=== PATIENT | male | born 1955 | race Caucasian/White ===

== ENCOUNTER 2018-07-15 12:44 | Emergency (ER) | payer OTHER ==
--- NOTE | 2018-07-15 13:06 | ER Document Report ---
ED Neuro Symptoms/Deficit <MECHELLE PRIETO - Last Filed: 07/15/18 13:39> - General Mode of Arrival: Ambulatory Information source: Patient Notes: Patient is a 63 year old male that presents to the emergency department today with complaints of "I think I am having a stroke". Patient states he was sitting on the edge of his bed watching tv at 1110 when his symptoms began. Patient describes these symptoms as left sided numbness/tingling/weakness from "the tips of his left toes to the tips of his left fingers". Patient stats he felt dizzy, near syncope, had blurry vision, speech impairments, and diaphoresis. Patient states that he knew what he wanted to say but there was a "delay in being able to get it out". Patient states he did not attempt to get up off the bed because he thinks he would have fallen. Patient called his neighbor who came over and then called EMS. Patient denies falling or any trauma. Patient states he nevers goes to the doctor and has no known medical problems or medications. Patient is not on any blood thinning medications. <JOSSY SHIELDS - Last Filed: 07/15/18 13:52> - General Stated Complaint: LEFT SIDE PAIN Time Seen by Provider: 07/15/18 12:56 Past Medical History - General Information source: Patient - Social History Smoking Status: Current Every Day Smoker Cigarette use (# per day): Yes Frequency of alcohol use: Heavy - states his drinking habits vary from several beers a day to several days without beer Lives with: Family Family History: Reviewed & Not Pertinent Past Surgical History: Reports: Other - Left shoulder ORIF <JOSSY SHIELDS - Last Filed: 07/15/18 13:52> Review of Systems - Review of Systems Constitutional: No symptoms reported EENT: See HPI, Blurred vision Cardiovascular: See HPI, Dizziness Respiratory: No symptoms reported Gastrointestinal: No symptoms reported Genitourinary: No symptoms reported Male Genitourinary: No symptoms reported Musculoskeletal: No symptoms reported Skin: No symptoms reported Hematologic/Lymphatic: No symptoms reported Neurological/Psychological: See HPI, Weakness - left sided, Speech impairment, Numbness - left sided -: Yes All other systems reviewed and negative <JOSSY SHIELDS - Last Filed: 07/15/18 13:52> Physical Exam - Vital signs Vitals: Temp 97 F L 07/15/18 13:10 <CONNERMECHELLE - Last Filed: 07/15/18 13:39> - Notes Notes: Physical Exam: General: Alert, appears well. Leg shivering/muscle twitching over distal medial thighs which he states he thinks is because he is quite cold in this air conditioned room as he does not have AC at home. HEENT: Normocephalic. Atraumatic. Large hollis. No cartoid bruits. PERRL. Extraocular movements intact. Oropharynx clear. Neck: Supple. Non-tender. Respiratory: No respiratory distress. Coarse breath sounds bilaterally consistent with extensive smoking history. Cardiovascular: Regular rate and rhythm. Abdominal: Normal Inspection. Non-tender. No distension. Normal Bowel Sounds. Back: Non-tender. No deformity or step off. Extremities: Moves all four extremities. Upper extremities: 3-4/5 strength in RUE. No edema. Lower extremities: 3-4/5 strength in LLE. No edema. Neurological: Normal cognition. AAOx4. Slightly delayed speech. Psychological: Normal affect. Normal Mood. Skin: Warm. Dry. Normal color. <JOSSY SHIELDS - Last Filed: 07/15/18 13:52> Course - Vital Signs Vital signs: Temp Pulse Resp BP Pulse Ox 97 F L 07/15/18 13:10 - Laboratory Result Diagrams: 07/15/18 12:07 07/15/18 12:07 Laboratory results interpreted by me: 07/15/18 07/15/18 07/15/18 12:07 12:07 13:11 WBC 10.9 H Glucose 133 H POC Glucose 115 H Direct Bilirubin 0.5 H AST 16 L ALT 16 L - Diagnostic Test Radiology reviewed: Reports reviewed - Chest x-ray is unremarkable. CT scan of the brain shows an acute right pontine hemorrhage. - EKG Interpretation by [place] EKG shows normal: Sinus rhythm, [place], Intervals, QRS Complexes. abnormal: ST-T Waves - Borderline anterolateral T abnormalities Rate: Normal - 59 Rhythm: NSR When compared to previous EKG there are: Previous EKG unavailable - Consults Dr. Irizarry Time consulted: 13:35 Consulted provider: other - Will accept at [facility]. <MECHELLE PRIETO - Last Filed: 07/15/18 13:39> - Laboratory Result Diagrams: 07/15/18 12:07 07/15/18 12:07 <JOSSY SHIELDS - Last Filed: 07/15/18 13:52> ED [employer]/Exc Criteria ED NIH Stroke Scale Discharge <MECHELLE PRIETO - Last Filed: 07/15/18 13:39> <JOSSY SHIELDS - Last Filed: 07/15/18 13:52> - Discharge Clinical Impression: Pontine hemorrhage High blood pressure Qualifiers: Hypertension type: unspecified Qualified Code(s): I10 - Essential (primary) hypertension Scribe Documentation - Scribe Written by Scribe:: Imani Romero, 07/15/2018 1350 acting as scribe for :: Conner <JOSSY SHIELDS - Last Filed: 07/15/18 13:52>
[2018-07-15 13:11] LABS: ABSOLUTE BASOPHILS # (AUTO) 0.1 10^3/uL (0.0-0.2); ABSOLUTE EOSINOPHILS # (AUTO) 0.3 10^3/uL (0.0-0.6); ABSOLUTE LYMPHOCYTES (AUTO) 4.6 10^3/uL (0.5-4.7); ABSOLUTE MONOCYTES (AUTO) 0.8 10^3/uL (0.1-1.4); ABSOLUTE NEUT (AUTO) 5.2 10^3/uL (1.7-8.2); BASOPHILS % (AUTO) 0.8 % (0-2); EOSINOPHILS % (AUTO) 2.4 % (0-6); HEMATOCRIT 44.1 % (37.9-51.0); HEMOGLOBIN 15.2 g/dL (13.5-17.0); MEAN CORPUSCULAR HEMOGLOBIN 31.1 pg (27.0-33.4); MEAN CORPUSCULAR HGB CONC 34.5 g/dL (32.0-36.0); MEAN CORPUSCULAR VOLUME 90 fl (80-97); MONOCYTES % (AUTO) 7.1 % (3-13); PLATELET COUNT 413 10^3/uL (150-450); RED BLOOD COUNT 4.89 10^6/uL (4.35-5.55); RED CELL DISTRIBUTION WIDTH 12.8 % (11.5-14.0); SEGMENTED NEUTROPHILS % (AUTO) 47.7 % (42-78); TOTAL CELLS COUNTED % (AUTO) 100 %; WHITE BLOOD COUNT 10.9 10^3/uL (4.0-10.5)
--- NOTE | 2018-07-15 13:18 | RADIOLOGY REPORT (SQ) ---
EXAM DESCRIPTION: CT HEAD WITHOUT COMPLETED DATE/TIME: 07/15/2018 1:08 pm REASON FOR STUDY: Left-sided weakness with impaired speech. COMPARISON: None. TECHNIQUE: Axial images acquired through the brain without intravenous contrast. Images reviewed wi th bone, brain and subdural windows. Additional sagittal and coronal reconstructions were generated. Images stored on PACS. All CT scanners at this facility use dose modulation, iterative reconstruction, and/or weight based d osing when appropriate to reduce radiation dose to as low as reasonably achievable (ALARA). [facility]: Dose Right [facility]: CareDose [facility]: Dose Right [facility]: Teradose 4D [facility]: [employer] RADIATION DOSE: CT Rad equipment meets quality standard of care and radiation dose reduction techniq ues were employed. CTDIvol: 53.2 mGy. DLP: 1044 mGy-cm. mGy. LIMITATIONS: None. FINDINGS: VENTRICLES: Normal size and contour. CEREBRUM: No masses. No hemorrhage. No midline shift. No evidence for acute infarction. Normal gra y/white matter differentiation. No areas of low density in the white matter. CEREBELLUM: No masses. No hemorrhage. No alteration of density. No evidence for acute infarction. EXTRAAXIAL SPACES: No fluid collections. No masses. ORBITS AND GLOBE: No intra- or extraconal masses. Normal contour of globe without masses. CALVARIUM: No fracture. PARANASAL SINUSES: No fluid or mucosal thickening. SOFT TISSUES: No mass or hematoma. OTHER: High density material in the right side of the zohreh consistent with hemorrhage, measuring 5 x 10 mm. 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 EVIDENCE OF ACUTE STROKE: YES. HEMORRHAGIC STROKE RIGHT SIDE OF THE ZOHREH. RIGHT VERTEBROBASILAR. COMMENT: Pertinent findings on the imaging study reported as a CRITICAL RESULT to MECHELLE PRIETO MD at13:12 on 07/15/2018. Category of Critical Result: Acute pontine hemorrhage. Quality ID # 436: Final reports with documentation of one or more dose reduction techniques (e.g., Au tomated exposure control, adjustment of the mA and/or kV according to patient size, use of iterative reconstruction technique) TECHNICAL DOCUMENTATION: JOB ID: [id number] [employer]- All Rights Reserved Reading location - IP/workstation name: [email or web address]
[2018-07-15 13:20] LABS: INTERNATIONAL RATION (INR) 0.91; PROTHROMBIN TIME 12.7 SEC (11.4-15.4)
[2018-07-15] MEDS ORDERED: LABETALOL HCL INJ 20 MG/4 ML DISP.SYRIN IV ONE (13:20)
[2018-07-15 13:30] LABS: ALANINE AMINOTRANSFERASE 16 U/L (21-72); ALBUMIN 4.4 g/dL (3.5-5.0); ALKALINE PHOSPHATASE 94 U/L (38-126); ANION GAP 9 (5-19); ASPARTATE AMINO TRANSFERASE 16 U/L (17-59); BILIRUBIN,DIRECT 0.5 mg/dL (0.0-0.4); BILIRUBIN,TOTAL 0.9 mg/dL (0.2-1.3); BLOOD UREA NITROGEN 9 mg/dL (7-20); CALCIUM 9.5 mg/dL (8.4-10.2); CARBON DIOXIDE 29 mmol/L (22-30); CHLORIDE 103 mmol/L (98-107); CREATINE KINASE 57 U/L (55-170); GLUCOSE 133 mg/dL (75-110); POTASSIUM 4.3 mmol/L (3.6-5.0); SODIUM 140.8 mmol/L (137-145); TOTAL PROTEIN 8.1 g/dL (6.3-8.2)
[2018-07-15] MEDS ORDERED: NICARDIPINE HCL RTU, ISO-OS 20 MG/200 ML RTUINJ IV PRN (13:33)
--- NOTE | 2018-07-15 13:48 | RADIOLOGY REPORT (SQ) ---
EXAM DESCRIPTION: CHEST SINGLE VIEW COMPLETED DATE/TIME: 07/15/2018 1:29 pm REASON FOR STUDY: COPD, left-sided weakness COMPARISON: None. EXAM PARAMETERS: NUMBER OF VIEWS: One view. TECHNIQUE: Single frontal radiographic view of the chest acquired. RADIATION DOSE: NA LIMITATIONS: None. FINDINGS: LUNGS AND PLEURA: No opacities, masses or pneumothorax. No pleural effusion. MEDIASTINUM AND HILAR STRUCTURES: No masses. Contour normal. HEART AND VASCULAR STRUCTURES: Heart normal in size. Normal vasculature. BONES: No acute findings. HARDWARE: None in the chest. OTHER: No other significant finding. IMPRESSION: NO ACUTE RADIOGRAPHIC FINDING IN THE CHEST. TECHNICAL DOCUMENTATION: JOB ID: [id number] [employer]- All Rights Reserved Reading location - IP/workstation name: [email or web address]
[2018-07-15 14:50] VITALS: BP 153/88
--- NOTE | 2018-07-15 20:07 | EKG REPORT ---
SEVERITY:- BORDERLINE ECG - SINUS RHYTHM BORDERLINE T ABNORMALITIES, ANT-LAT LEADS : Confirmed by: Bianka Chavarria MD 15-Jul-2018 20:07:09
== END 2018-07-15 14:50 | disposition short-term general hospital (02) ==
LOC: ER 12:44
DX: I61.3 Nontraumatic intracerebral hemorrhage in brain stem (principal); I10 Essential (primary) hypertension; R53.1 Weakness; R20.0 Anesthesia of skin; R20.2 Paresthesia of skin; H53.8 Other visual disturbances; R55 Syncope and collapse; R47.9 Unspecified speech disturbances; F17.210 Nicotine dependence, cigarettes, uncomplicated; R25.3 Fasciculation
CPT/HCPCS: 93005; 99285; 96365; 36415; 82962; 82550; 83735; 85025; 85610; 80053; 84484; 71045; 70450; 93010; J3490

== ENCOUNTER → 2018-11-15 | Outpatient (CLI) | payer MEDICAID ==
--- NOTE | 2018-11-15 13:27 | RADIOLOGY REPORT (SQ) ---
EXAM DESCRIPTION: CT HEAD WITHOUT COMPLETED DATE/TIME: 11/15/2018 1:08 pm REASON FOR STUDY: R53.1 WEAKNESS R53.1 WEAKNESS COMPARISON: 07/15/2018. TECHNIQUE: Axial images acquired through the brain without intravenous contrast. Images reviewed wi th bone, brain and subdural windows. Additional sagittal and coronal reconstructions were generated. Images stored on PACS. All CT scanners at this facility use dose modulation, iterative reconstruction, and/or weight based d osing when appropriate to reduce radiation dose to as low as reasonably achievable (ALARA). [facility]: Dose Right [facility]: CareDose [facility]: Dose Right [facility]: Teradose 4D [facility]: Smart Right [employer] RADIATION DOSE: CT Rad equipment meets quality standard of care and radiation dose reduction techniq ues were employed. CTDIvol: 48.6 mGy. DLP: 954 mGy-cm. mGy. LIMITATIONS: None. FINDINGS: VENTRICLES: Normal size and contour. CEREBRUM: No masses. No hemorrhage. No midline shift. No evidence for acute infarction. Normal gra y/white matter differentiation. No areas of low density in the white matter. CEREBELLUM: No masses. No hemorrhage. No alteration of density. No evidence for acute infarction. EXTRAAXIAL SPACES: No fluid collections. No masses. ORBITS AND GLOBE: No intra- or extraconal masses. Normal contour of globe without masses. CALVARIUM: No fracture. PARANASAL SINUSES: No fluid or mucosal thickening. SOFT TISSUES: No mass or hematoma. OTHER: No other significant finding. IMPRESSION: NORMAL BRAIN CT WITHOUT CONTRAST. EVIDENCE OF ACUTE STROKE: NO. COMMENT: Quality ID # 436: Final reports with documentation of one or more dose reduction techniques (e.g., Automated exposure control, adjustment of the mA and/or kV according to patient size, use of iterative reconstruction technique) TECHNICAL DOCUMENTATION: JOB ID: [id number] [employer]- All Rights Reserved Reading location - IP/workstation name: [email or web address]
== END ==
LOC: RAD 12:48
PROVIDERS: ATTEND Physician Assistant
DX: R53.1 Weakness (principal)
CPT/HCPCS: 70450

== ENCOUNTER 2019-11-09 09:26 | Day surgery (SDC) | payer MEDICARE, MEDICAID ==
[~2019-11-09 09:26] MED LIST: PROPOFOL INJ 200 MG/20 ML VIAL IV ONE
[2019-11-09] MEDS ORDERED: PROPOFOL INJ 200 MG/20 ML VIAL IV ONE (10:36)
[2019-11-09 11:33] VITALS: BP 102/81
--- NOTE | 2019-11-09 17:12 | Operative Report ---
Operative Report DATE OF SURGERY: 11/09/19 Operative Report: Risk, benefits and alternatives of the procedure including the risk of bleeding, perforation requiring surgery have been explained to the patient in detail and informed consent has been obtained. The patient is placed in a left, lateral decubital position. Timeout was called. Propofol medication is administered. Rectal examination is done which did not reveal any masses, tears or fissures. An Olympus videoscope was introduced into the patient's rectum. Scope was then carefully advanced all the way to the cecum. The cecum was identified by the usual anatomical landmarks including the ileocecal valve as well as the appendiceal office. Photodocumentation is obtained. Scope was then sequentially pulled back via the various segments of the colon including the ascending colon, hepatic flexure, transverse colon, splenic flexure, descending colon and finally into the rectosigmoid portions of the colon. Retroflexion maneuvers performed. 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 COMPLICATIONS: None. ESTIMATED BLOOD LOSS: None. INTRAOPERATIVE FINDINGS: As noted above. PROCEDURE: Patient tolerated the procedure well. No immediate postprocedure complications are noted. Patient is discharged in good condition. Discharge date 11/09/2019. Discharge diet: Regular. Discharge activity: Regular. 2 to 3-week follow-up to discuss findings. Likely will need 5-year surveillance colonoscopy. Patient is instructed to call the office or proceed to the emergency room should there be any further problems or questions.
== END 2019-11-09 11:35 | disposition home or self-care (01) ==
LOC: END 09:26
PROVIDERS: ATTEND Internal Medicine Gastroenterology
DX: Q27.33 Arteriovenous malformation of digestive system vessel (principal); K64.8 Other hemorrhoids; K92.1 Melena; E78.5 Hyperlipidemia, unspecified; I10 Essential (primary) hypertension; Z86.73 Personal history of transient ischemic attack (TIA), and cerebral infarction without residual deficits; E78.00 Pure hypercholesterolemia, unspecified; Z79.899 Other long term (current) drug therapy
CPT/HCPCS: 45382; 00811; J2704; 811

== ENCOUNTER 2019-11-21 10:14 | Observation (INO) | payer MEDICARE, MEDICAID ==
--- NOTE | 2019-11-21 11:26 | ER Document Report ---
ED Medical Screen (RME) - General Chief Complaint: Diarrhea Stated Complaint: DIARRHEA,BLOOD IN STOOL Time Seen by Provider: 11/21/19 11:16 Primary Care Provider: SHREYA RENDON PA-C [Primary Care Provider] - Follow up as needed Mode of Arrival: Ambulatory Information source: Patient Notes: 64-year-old male patient presenting to the emergency department concern for bl ood in his stools. Patient reports he had a colonoscopy done on 11/09/[address] Good. Patient reports that he does have a history of hemorrhoids although the bleeding he is experiencing today is too much blood to be from a hemorrhoid. He reports the bleeding as bright red blood coming with each bowel movement. He states he is having loose diarrhea stools. He reports associated abdominal cramping. Denies any fevers. Reports nausea no vomiting. Mild tenderness to palpation along the low abdomen, no guarding no rebound. I have greeted and performed a rapid initial assessment of this patient. A comprehensive ED assessment and evaluation of the patient, analysis of test results and completion of the medical decision making process will be conducted by additional ED providers. I have specifically instructed the patient or family members with the patient to immediately return to any nursing staff should anything change in the patient's condition or with their chief complaint. TRAVEL OUTSIDE OF THE [place] IN LAST 30 DAYS: No - Related Data Allergies/Adverse Reactions: No Known Allergies Allergy (Verified 11/21/19 11:13) Past Medical History - Social History Frequency of alcohol use: Occasional - Past Medical History Cardiac Medical History: Reports: Hx Coronary Artery Disease, Hx Hypertension Denies: Hx Heart Attack Pulmonary Medical History: Denies: Hx Asthma, Hx Bronchitis, Hx COPD, Hx Pneumonia Neurological Medical History: Reports: Hx Cerebrovascular Accident - L side weakness/numbness. Denies: Hx Seizures Renal/ Medical History: Denies: Hx Peritoneal Dialysis Musculoskeltal Medical History: Denies Hx Arthritis Past Surgical History: Reports: Hx Orthopedic Surgery, Other - Left shoulder ORIF - Immunizations Hx Diphtheria, Pertussis, Tetanus Vaccination: No Physical Exam - Vital signs Vitals: Temp Pulse Resp BP Pulse Ox 97.3 F 100 16 133/85 H 99 11/21/19 10:23 11/21/19 10:23 11/21/19 10:23 11/21/19 10:23 11/21/19 10:23 Course - Vital Signs Vital signs: Temp Pulse Resp BP Pulse Ox 97.3 F 100 16 133/85 H 99 11/21/19 10:23 11/21/19 10:23 11/21/19 10:23 11/21/19 10:23 11/21/19 10:23 Doctor's Discharge - Discharge Referrals: SHREYA RENDON PA-C [Primary Care Provider] - Follow up as needed
[2019-11-21 12:20] LABS: ABSOLUTE BASOPHILS # (AUTO) 0.1 10^3/uL (0.0-0.2); ABSOLUTE EOSINOPHILS # (AUTO) 0.2 10^3/uL (0.0-0.6); ABSOLUTE LYMPHOCYTES (AUTO) 3.2 10^3/uL (0.5-4.7); ABSOLUTE MONOCYTES (AUTO) 0.8 10^3/uL (0.1-1.4); BASOPHILS % (AUTO) 0.6 % (0-2); EOSINOPHILS % (AUTO) 1.9 % (0-6); HEMATOCRIT 40.1 % (37.9-51.0); LYMPHOCYTES % (AUTO) 26.3 % (13-45); MEAN CORPUSCULAR HEMOGLOBIN 31.6 pg (27.0-33.4); MEAN CORPUSCULAR HGB CONC 34.8 g/dL (32.0-36.0); MEAN CORPUSCULAR VOLUME 91 fl (80-97); MONOCYTES % (AUTO) 6.2 % (3-13); PLATELET COUNT 357 10^3/uL (150-450); RED BLOOD COUNT 4.42 10^6/uL (4.35-5.55); RED CELL DISTRIBUTION WIDTH 12.6 % (11.5-14.0); TOTAL CELLS COUNTED % (AUTO) 100 %; WHITE BLOOD COUNT 12.3 10^3/uL (4.0-10.5)
[2019-11-21 12:21] LABS: ALBUMIN 4.7 g/dL (3.5-5.0); ALKALINE PHOSPHATASE 85 U/L (38-126); ANION GAP 11 (5-19); ASPARTATE AMINO TRANSFERASE 19 U/L (17-59); BILIRUBIN,DIRECT 0.1 mg/dL (0.0-0.4); BILIRUBIN,TOTAL 1.4 mg/dL (0.2-1.3); BLOOD UREA NITROGEN 19 mg/dL (7-20); CALCIUM 9.7 mg/dL (8.4-10.2); CARBON DIOXIDE 31 mmol/L (22-30); CHLORIDE 100 mmol/L (98-107); GLUCOSE 106 mg/dL (75-110); POTASSIUM 5.3 mmol/L (3.6-5.0); TOTAL PROTEIN 7.8 g/dL (6.3-8.2)
--- NOTE | 2019-11-21 12:24 | RADIOLOGY REPORT (SQ) ---
EXAM DESCRIPTION: KUB/ABDOMEN (SINGLE VIEW) COMPLETED DATE/TIME: 11/21/2019 12:10 pm REASON FOR STUDY: bloody stools COMPARISON: None. NUMBER OF VIEWS: One view. TECHNIQUE: Supine radiographic image of the abdomen acquired. LIMITATIONS: None. FINDINGS: BOWEL GAS PATTERN: Nonspecific gas containing loops of bowel in the mid abdomen. No defin itive pathologic dilation. CALCIFICATIONS: No suspicious calcifications. Scattered pelvic phleboliths. Vascular calcifications . SOFT TISSUES: No gross mass or suggestion of organomegaly. HARDWARE: None in the abdomen. BONES: No acute fracture. No worrisome bone lesions. OTHER: No other significant finding. IMPRESSION: NO RADIOGRAPHIC EVIDENCE FOR ACUTE ABDOMINAL DISEASE. TECHNICAL DOCUMENTATION: JOB ID: [id number] [employer]- All Rights Reserved Reading location - IP/workstation name: [email or web address]
[2019-11-21 12:36] LABS: APPEARANCE,URINE SLIGHTLY-CLOUDY; BILIRUBIN,URINE NEGATIVE (NEGATIVE); COLOR,URINE YELLOW; GLUCOSE, URINE NEGATIVE (NEGATIVE); KETONES,URINE NEGATIVE (NEGATIVE); PROTEIN,URINE NEGATIVE (NEGATIVE); URINE SPECIFIC GRAVITY 1.025; UROBILINOGEN,URINE NEGATIVE mg/dL (<2.0)
--- NOTE | 2019-11-21 13:04 | ER Document Report ---
ED GI/ - General Chief Complaint: Diarrhea Stated Complaint: DIARRHEA,BLOOD IN STOOL Time Seen by Provider: 11/21/19 11:16 Primary Care Provider: SHREYA RENDON PA-C [Primary Care Provider] - Follow up as needed Mode of Arrival: Ambulatory Notes: Patient is a 64-year-old male with a history of hypertension, high cholesterol, acid reflux who presents emergency department with a chief complaint of rectal bleeding. Patient reports around 8 AM this morning he was having generalized lower abdominal cramping. Patient reports that within 1 hour he had about 4-5 bowel movements that appeared to be mixed with bright red blood and bile. Patient reports since then he has noticed some bright red bleeding twice from the rectum without a bowel movement. Patient reports he feels the urge to have a BM but that all that comes out is bright red blood. He states he is seeing small clots. Patient reports he has had rectal bleeding in the past but never this much. Patient reports he did have a colonoscopy on November 09, [address] Good. He reports they did find a spot where they had to ablate. Patient reports other than that he was told that it was normal. Patient reports he has had no issues since then. Patient denies use of blood thinners. Patient reports that since relieving a gas the abdominal cramping has subsided. TRAVEL OUTSIDE OF THE [place] IN LAST 30 DAYS: No - Related Data Allergies/Adverse Reactions: No Known Allergies Allergy (Verified 11/21/19 11:13) Past Medical History - General Information source: Patient - Social History Smoking Status: Current Every Day Smoker Frequency of alcohol use: Occasional Lives with: Family Family History: Reviewed & Not Pertinent Patient has suicidal ideation: No Patient has homicidal ideation: No - Past Medical History Cardiac Medical History: Reports: Hx Coronary Artery Disease, Hx Hypertension Denies: Hx Heart Attack Pulmonary Medical History: Reports: None Denies: Hx Asthma, Hx Bronchitis, Hx COPD, Hx Pneumonia EENT Medical History: Reports: None Neurological Medical History: Reports: Hx Cerebrovascular Accident - L side weakness/numbness. Denies: Hx Seizures Endocrine Medical History: Reports: None Renal/ Medical History: Reports: None. Denies: Hx Peritoneal Dialysis Malignancy Medical History: Reports None GI Medical History: Reports: Hx Gastroesophageal Reflux Disease Musculoskeletal Medical History: Reports None, Denies Hx Arthritis Skin Medical History: Reports None Psychiatric Medical History: Reports: None Traumatic Medical History: Reports: None Infectious Medical History: Reports: None Past Surgical History: Reports: Hx Orthopedic Surgery, Other - Left shoulder ORIF - Immunizations Hx Diphtheria, Pertussis, Tetanus Vaccination: No Review of Systems - Review of Systems Constitutional: No symptoms reported EENT: No symptoms reported Cardiovascular: No symptoms reported Respiratory: No symptoms reported Gastrointestinal: See HPI Genitourinary: No symptoms reported Male Genitourinary: No symptoms reported Musculoskeletal: No symptoms reported Skin: No symptoms reported Hematologic/Lymphatic: No symptoms reported Neurological/Psychological: No symptoms reported Physical Exam - Vital signs Vitals: Temp Pulse Resp BP Pulse Ox 97.3 F 100 16 133/85 H 99 11/21/19 10:23 11/21/19 10:23 11/21/19 10:23 11/21/19 10:11/21/19 10:23 - Notes Notes: GENERAL: Well-appearing, well-nourished and in no acute distress. HEAD: Atraumatic, normocephalic. EYES: Pupils equal round and reactive to light, extraocular movements intact, sclera anicteric, conjunctiva are normal. ENT: Nares patent, oropharynx clear without exudates. Moist mucous membranes. NECK: Normal range of motion, supple without lymphadenopathy or JVD. LUNGS: Breath sounds clear to auscultation bilaterally and equal. No wheezes rales or rhonchi. HEART: Regular rate and rhythm without murmurs, rubs or gallops. ABDOMEN: Soft, nontender (no lower abdominal tenderness noted with palpation), normoactive bowel sounds. No guarding, no rebound. No masses appreciated. BACK: No cervical, thoracic, lumbar midline tenderness. No saddle anesthesia, normal distal neurovascular exam. GENITOURINARY: Deferred. EXTREMITIES: Normal range of motion, no pitting or edema. No clubbing or cyanosis. NEUROLOGICAL: Cranial nerves II through XII grossly intact. Normal speech, normal gait. PSYCH: Normal mood, normal affect. SKIN: Warm, Dry, normal turgor, no rashes or lesions noted. Course - Re-evaluation Re-evalutation: 11/21/19 13:06 Upon initial examination patient is resting comfortably on stretcher no acute di stress. Patient is nontoxic-appearing. Patient denies abdominal pain. A rectal examination was performed with Antwan C., RN assisting. Patient was noted to have 3 areas of bulging coming out of the rectum which appear to be hemorrhoids. Patient tolerated the examination well. Hemoccult was positive. With removal of my gloved finger there was bright red blood noted. 11/21/19 13:09 I did review the operative report from November 09 during the patient's colonoscopy. 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 Patient reports being asymptomatic until this morning. 11/21/19 13:25 I did consult with my supervising physician Dr. Arias who recommends calling Dr. Good for consult as he did perform the colonoscopy on the , [facility] cardiac monitoring and two large bore IVs. PT/PTT/INR have been added. Called Dr. Good at his office to discuss the patient case, he states that he will consult the patient as he performed the colonoscopy on the . He states to call the hospitalist for admission, patient will need to be prepped and will be available to scope the patient tomorrow. 11/21/19 13:30 Paged hospitalist. 11/21/19 14:03 I did speak with Dr. Hoover, hospitalist who admit to the hospital for GI bleed - he is aware that I spoke with Dr. Good and that he will be seeing the patient. IMCU bed ordered. Patient updated on admission status and that he will be prepped for colonoscopy tomorrow by Dr. Good. Blood work was unremarkable without a significant anemia. Patient is on the lehr stripper with a heart rate in the 70s. Patient is a sinus rhythm. Patient stable at this time. - Vital Signs Vital signs: Temp Pulse Resp BP Pulse Ox 98.3 F 96 18 104/69 95 11/21/19 13:24 11/21/19 13:24 11/21/19 13:24 11/21/19 13:24 11/21/19 13:24 - Laboratory Result Diagrams: 11/21/19 11:30 11/21/19 11:30 Laboratory results interpreted by me: 11/21/19 11/21/19 11/21/19 11:30 11:30 11:30 WBC 12.3 H Potassium 5.3 H Carbon Dioxide 31 H Total Bilirubin 1.4 H Urine Ascorbic Acid 40 H 11/21/19 14:05 Patient has a slight leukocytosis of 12.3. Patient does not have a significant anemia as his hemoglobin is 14 and hematocrit is 40.1. Patient's platelet count is 357. Patient's coagulation studies including the PT, PTT and INR are all within normal limits. Patient's potassium was slightly elevated at a 5.3. Patient's kidney function is within normal limits as well as an unremarkable urinalysis. Laboratory 11/21/19 11/21/19 11/21/19 11:30 11:30 11:30 WBC 12.3 H RBC 4.42 Hgb 14.0 Hct 40.1 MCV 91 MCH 31.6 MCHC 34.8 RDW 12.6 Plt Count 357 Lymph % (Auto) 26.3 [place] % (Auto) 6.2 Eos % (Auto) 1.9 Baso % (Auto) 0.6 Absolute Neuts (auto) 8.0 Absolute Lymphs (auto) 3.2 Absolute Monos (auto) 0.8 Absolute Eos (auto) 0.2 Absolute Basos (auto) 0.1 Seg Neutrophils % 65.0 PT INR APTT Sodium 142.3 Potassium 5.3 H Chloride 100 Carbon Dioxide 31 H Anion Gap 11 BUN 19 Creatinine 0.65 Est GFR ( Amer) > 60 Est GFR (MDRD) Non-Af > 60 Glucose 106 Calcium 9.7 Total Bilirubin 1.4 H Direct Bilirubin 0.1 Neonat Total Bilirubin Not Reportable Neonat Direct Bilirubin Not Reportable Neonat Indirect Bili Not Reportable AST 19 ALT 13 Alkaline Phosphatase 85 Total Protein 7.8 Albumin 4.7 Urine Color YELLOW Urine Appearance SLIGHTLY-CLOUDY Urine pH 5.0 Ur Specific [place] 1.025 Urine Protein NEGATIVE Urine Glucose (UA) NEGATIVE Urine Ketones NEGATIVE Urine Blood NEGATIVE Urine Nitrite (Reflex) NEGATIVE Urine Bilirubin NEGATIVE Urine Urobilinogen NEGATIVE Leukocyte Esterase Rfl NEGATIVE Urine RBC (Auto) 1 Urine WBC (Reflex) 4 Squamous Epi Cells Auto 1 Urine Mucus (Auto) MANY Urine Ascorbic Acid 40 H POC Stool Occult Blood 11/21/19 11/21/19 11:30 12:48 WBC RBC Hgb Hct MCV MCH MCHC RDW Plt Count Lymph % (Auto) [place] % (Auto) Eos % (Auto) Baso % (Auto) Absolute Neuts (auto) Absolute Lymphs (auto) Absolute Monos (auto) Absolute Eos (auto) Absolute Basos (auto) Seg Neutrophils % PT 13.5 INR 1.03 APTT 31.9 Sodium Potassium Chloride Carbon Dioxide Anion Gap BUN Creatinine Est GFR ( Amer) Est GFR (MDRD) Non-Af Glucose Calcium Total Bilirubin Direct Bilirubin Neonat Total Bilirubin Neonat Direct Bilirubin Neonat Indirect Bili AST ALT Alkaline Phosphatase Total Protein Albumin Urine Color Urine Appearance Urine pH Ur Specific [place] Urine Protein Urine Glucose (UA) Urine Ketones Urine Blood Urine Nitrite (Reflex) Urine Bilirubin Urine Urobilinogen Leukocyte Esterase Rfl Urine RBC (Auto) Urine WBC (Reflex) Squamous Epi Cells Auto Urine Mucus (Auto) Urine Ascorbic Acid POC Stool Occult Blood POSITIVE - Diagnostic Test Radiology reviewed: Reports reviewed Radiology results interpreted by me: 11/21/19 14:06 KUB X-Ray 11/21/19 11:26 IMPRESSION: NO RADIOGRAPHIC EVIDENCE FOR ACUTE ABDOMINAL DISEASE. Discharge - Discharge Clinical Impression: Rectal bleeding, Internal hemorrhoid Condition: Stable Disposition: ADMITTED OBSERVATION Admitting Provider: Sneha (Hospitalist) Unit Admitted: IMCU Referrals: SHREYA RENDON PA-C [Primary Care Provider] - Follow up as needed
[2019-11-21 13:49] LABS: INTERNATIONAL RATION (INR) 1.03; PROTHROMBIN TIME 13.5 SEC (11.4-15.4)
[2019-11-21 13:50] LABS: PARTIAL THROMBOPLASTIN TIME 31.9 SEC (23.5-35.8)
--- NOTE | 2019-11-21 16:29 | PDOC H&P ---
History of Present Illness Admission Date/PCP: 11/21/19 14:09 SHREYA RENDON PA-C Patient complains of: hematochezia History of Present Illness: ANAID RENE is a 64 year old male with a past medical history of hypertension and hyperlipidemia who presented with Patient recently had a colonoscopy done on 11/09/[address] 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 He underwent ablation of the AVM. He says he has been apparently fine until early this morning, when he started passing out bright red bloody stools. He says he had a total of 5 episodes of hematochezia. He report mild lower abdominal cramping. Denies nausea vomiting or hematemesis. Upon encounter, blood pressures are running in the 120s over 80s. Heart rate in the 80s to 90s. He denies dizziness, shortness of shortness of breath. Hemoglobin at 14. Discussed with Dr. Good. Patient will be scheduled for a repeat colonoscopy tomorrow. Past Medical History Cardiac Medical History: Reports: Coronary Artery Disease, Hypertension Denies: Myocardial Infarction Pulmonary Medical History: Reports: None Denies: Asthma, Bronchitis, Chronic Obstructive Pulmonary Disease (COPD), Pneumonia EENT Medical History: Reports: None Neurological Medical History: Denies: Seizures Endocrine Medical History: Reports: None Renal/ Medical History: Reports: None Malignancy Medical History: Reports: None GI Medical History: Reports: Gastroesophageal Reflux Disease Musculoskeltal Medical History: Reports: None Denies: Arthritis Skin Medical History: Reports: None Psychiatric Medical History: Reports: None Traumatic Medical History: Reports: None Hematology: Denies: Anemia Infectious Medical History: Reports: None Past Surgical History Past Surgical History: Reports: Orthopedic Surgery, Other - Left shoulder ORIF Social History Lives with: Family Smoking Status: Current Every Day Smoker Electronic Cigarette use?: No Family History Family History: Reviewed & Not Pertinent Parental Family History Reviewed: Yes - no premature CAD Children Family History Reviewed: No Sibling(s) Family History Reviewed.: No Medication/Allergy Home Medications: Atorvastatin Calcium [Lipitor 40 mg Tablet] 40 mg PO QAM 11/08/19 Lisinopril [Zestril] 5 mg PO QAM 11/08/19 Acetaminophen [Acetaminophen Extra Strength] 1,000 mg PO Q4HP PRN 11/21/19 Krill/Om-3/Dha/Epa/Phospho/Ast [[place]-3 Krill Oil 300 mg Sfgl] 1 cap PO DAILY 11/21/19 Nicotine Polacrilex [Nicotine Lozenge] 2 mg PO ASDIR PRN 11/21/19 Varenicline Tartrate [Chantix 1 mg Tablet] 1 mg PO BID 11/21/19 Allergies/Adverse Reactions: No Known Allergies Allergy (Verified 11/21/19 11:13) Review of Systems All systems: reviewed and no additional remarkable complaints except as stated - as mentioned in HPI Physical Exam Vital Signs: Temp Pulse Resp BP Pulse Ox 98.3 F 96 19 104/69 96 11/21/19 13:24 11/21/19 13:24 11/21/19 14:00 11/21/19 13:24 11/21/19 14:00 Intake & Output 11/20/19 11/21/19 11/22/19 06:59 06:59 06:59 Weight 191 lb Results Laboratory Results: 11/21/19 11:30 11/21/19 11:30 11/21/19 11/21/19 11/21/19 11:30 11:30 11:30 WBC 12.3 H RBC 4.42 Hgb 14.0 Hct 40.1 MCV 91 MCH 31.6 MCHC 34.8 RDW 12.6 Plt Count 357 Seg Neutrophils % 65.0 Sodium 142.3 Potassium 5.3 H Chloride 100 Carbon Dioxide 31 H Anion Gap 11 BUN 19 Creatinine 0.65 Est GFR ( Amer) > 60 Glucose 106 Calcium 9.7 Total Bilirubin 1.4 H AST 19 Alkaline Phosphatase 85 Total Protein 7.8 Albumin 4.7 Urine Color YELLOW Urine Appearance SLIGHTLY-CLOUDY Urine pH 5.0 Ur Specific [place] 1.025 Urine Protein NEGATIVE Urine Glucose (UA) NEGATIVE Urine Ketones NEGATIVE Urine Blood NEGATIVE Urine RBC (Auto) 1 Impressions: KUB X-Ray 11/21/19 11:26 IMPRESSION: NO RADIOGRAPHIC EVIDENCE FOR ACUTE ABDOMINAL DISEASE. Assessment and Plan - Diagnosis (1) Lower GI bleed Is this a current diagnosis for this admission?: Yes Plan: Patient is hemodynamically stable at this time. Hemoglobin at 14. Discussed with Dr. Good. Patient will be scheduled for a repeat colonoscopy tomorrow. We will cycle H&H. We will also start patient IV fluids. (2) HTN (hypertension) Is this a current diagnosis for this admission?: Yes - Time Time Spent with patient: 25-34 minutes
[2019-11-21] MEDS: NORMAL SALINE 1000 ML 1,000 ML IV PRN (16:52)
[2019-11-21] MEDS ORDERED: PEG 3350/NA SULF,BICARB,CL/KCL 4000 ML PO ONE (17:30)
[2019-11-21 18:16] LABS: HEMATOCRIT 38.7 % (37.9-51.0); HEMOGLOBIN 13.2 g/dL (13.5-17.0); MEAN CORPUSCULAR HEMOGLOBIN 30.9 pg (27.0-33.4); MEAN CORPUSCULAR HGB CONC 34.1 g/dL (32.0-36.0); MEAN CORPUSCULAR VOLUME 91 fl (80-97); PLATELET COUNT 354 10^3/uL (150-450); RED BLOOD COUNT 4.28 10^6/uL (4.35-5.55); RED CELL DISTRIBUTION WIDTH 12.4 % (11.5-14.0)
--- NOTE | 2019-11-21 19:29 | PDOC CONSULTATION ---
Consultation Consult Date: 11/21/19 Provider Consulted: BILLIE KUNZ Consult reason:: GI bleeding History of Present Illness Admission Date/PCP: 11/21/19 14:09 SHREYA RENDON PA-C History of Present Illness: ANAID RENE is a 64 year old male had underwent colonoscopy about 2 weeks ago, had a cecal avm that was ablated was doing well until earlier today when he went tot bathroom had abdominal pain followed by blood in stool which he describes as dark red following his previous procedure, had not taken any NSAIDS he did have hemorrhoids other than antihypertensive medications , no anticoagulation initial Hgb stable will need repeat colonoscopy spoke with Dr Hoover will be prepped overnight for procedure denies any chest pain or SOB Past Medical History Cardiac Medical History: Reports: Coronary Artery Disease, Hypertension Denies: Myocardial Infarction Pulmonary Medical History: Reports: None Denies: Asthma, Bronchitis, Chronic Obstructive Pulmonary Disease (COPD), Pneumonia EENT Medical History: Reports: None Neurological Medical History: Denies: Seizures Endocrine Medical History: Reports: None Renal/ Medical History: Reports: None Malignancy Medical History: Reports: None GI Medical History: Reports: Gastroesophageal Reflux Disease Musculoskeltal Medical History: Reports: None Denies: Arthritis Skin Medical History: Reports: None Psychiatric Medical History: Reports: None Traumatic Medical History: Reports: None Hematology: Denies: Anemia Infectious Medical History: Reports: None Past Surgical History Past Surgical History: Reports: Orthopedic Surgery, Other - Left shoulder ORIF Social History Lives with: Family Smoking Status: Current Every Day Smoker Electronic Cigarette use?: No - Advance Directive Resuscitation Status: Full Code Family History Family History: Reviewed & Not Pertinent Parental Family History Reviewed: Yes Children Family History Reviewed: Unknown Sibling(s) Family History Reviewed.: Unknown Medication/Allergy Home Medications: Atorvastatin Calcium [Lipitor 40 mg Tablet] 40 mg PO QAM 11/08/19 Lisinopril [Zestril] 5 mg PO QAM 11/08/19 Acetaminophen [Acetaminophen Extra Strength] 1,000 mg PO Q4HP PRN 11/21/19 Krill/Om-3/Dha/Epa/Phospho/Ast [[place]-3 Krill Oil 300 mg Sfgl] 1 cap PO DAILY 11/21/19 Nicotine Polacrilex [Nicotine Lozenge] 2 mg PO ASDIR PRN 11/21/19 Varenicline Tartrate [Chantix 1 mg Tablet] 1 mg PO BID 11/21/19 Allergies/Adverse Reactions: No Known Allergies Allergy (Verified 11/21/19 11:13) Review of Systems Constitutional: ABSENT: fever(s), headache(s), night sweats Eyes: ABSENT: visual disturbances Ears: ABSENT: hearing changes Nose, Mouth, and Throat: ABSENT: mouth pain, sore throat Cardiovascular: ABSENT: orthropnea Respiratory: ABSENT: dyspnea, hemoptysis Gastrointestinal: ABSENT: dysphagia, heartburn, hematemesis Genitourinary: ABSENT: dysuria, hematuria Musculoskeletal: ABSENT: joint swelling Integumentary: ABSENT: pruritus Neurological: ABSENT: syncope, tingling, tremor(s), vertigo Endocrine: ABSENT: polydipsia, polyphagia, polyuria Hematologic/Lymphatic: ABSENT: easy bruising Physical Exam Vital Signs: Temp Pulse Resp BP Pulse Ox 97.4 F 107 H 16 116/76 100 11/21/19 17:14 11/21/19 17:14 11/21/19 17:14 11/21/19 17:14 11/21/19 17:14 Intake & Output 11/20/19 11/21/19 11/22/19 06:59 06:59 06:59 Weight 85.5 kg General appearance: PRESENT: no acute distress, well-developed, well-nourished Head exam: PRESENT: atraumatic, normocephalic Eye exam: PRESENT: EOMI, PERRLA. ABSENT: scleral icterus Mouth exam: PRESENT: moist, neck supple Neck exam: ABSENT: meningismus, tenderness, thyromegaly Respiratory exam: PRESENT: clear to auscultation [place], symmetrical, unlabored. ABSENT: chest wall tenderness, tachypnea Cardiovascular exam: PRESENT: RRR, +S1, +S2 GI/Abdominal exam: PRESENT: Cerna's sign, normal bowel sounds, soft. ABSENT: rebound, rigid Extremities exam: ABSENT: joint swelling Musculoskeletal exam: PRESENT: full ROM Neurological exam: PRESENT: alert, awake, oriented to person, CN II-XII grossly intact Psychiatric exam: ABSENT: anxious Skin exam: PRESENT: normal color. ABSENT: pallor, petechiae, urticaria, vesicles Results Laboratory Results: 11/21/19 18:07 11/21/19 11:30 11/21/19 11/21/19 11/21/19 11:30 11:30 11:30 WBC 12.3 H RBC 4.42 Hgb 14.0 Hct 40.1 MCV 91 MCH 31.6 MCHC 34.8 RDW 12.6 Plt Count 357 Seg Neutrophils % 65.0 Sodium 142.3 Potassium 5.3 H Chloride 100 Carbon Dioxide 31 H Anion Gap 11 BUN 19 Creatinine 0.65 Est GFR ( Amer) > 60 Glucose 106 Calcium 9.7 Total Bilirubin 1.4 H AST 19 Alkaline Phosphatase 85 Total Protein 7.8 Albumin 4.7 Urine Color YELLOW Urine Appearance SLIGHTLY-CLOUDY Urine pH 5.0 Ur Specific [place] 1.025 Urine Protein NEGATIVE Urine Glucose (UA) NEGATIVE Urine Ketones NEGATIVE Urine Blood NEGATIVE Urine RBC (Auto) 1 11/21/19 18:07 WBC 12.0 H RBC 4.28 L Hgb 13.2 L Hct 38.7 MCV 91 MCH 30.9 MCHC 34.1 RDW 12.4 Plt Count 354 Seg Neutrophils % Sodium Potassium Chloride Carbon Dioxide Anion Gap BUN Creatinine Est GFR ( Amer) Glucose Calcium Total Bilirubin AST Alkaline Phosphatase Total Protein Albumin Urine Color Urine Appearance Urine pH Ur Specific [place] Urine Protein Urine Glucose (UA) Urine Ketones Urine Blood Urine RBC (Auto) Impressions: KUB X-Ray 11/21/19 11:26 IMPRESSION: NO RADIOGRAPHIC EVIDENCE FOR ACUTE ABDOMINAL DISEASE. Assessment & Plan - Diagnosis (1) Lower GI bleed Is this a current diagnosis for this admission?: Yes Plan: had AVM previously cauterized which could have bled again hemodynamically stable will need colonoscopy that will be scheduled tomorrow Risks, benefits and alternatives are discussed with the patient in detail no polyps were removed on last colonoscopy further recommendations to follow - Time Time Spent: 50 to 70 Minutes
[2019-11-21] MEDS ORDERED: ACETAMINOPHEN 325 MG TABLET NG PRN (23:39)
[2019-11-21] MEDS ORDERED: DEXTROSE 40% GEL 15 GM TUBE PO PRN ×2 (23:55)
[2019-11-21] MEDS ORDERED: GLUCAGON,HUMAN RECOMB 1 MG INJ SUBCUT PRN (23:55)
[2019-11-21] MEDS ORDERED: DEXTROSE 50%-WATER 25 GM/50 ML DISP.SYRIN IV PRN ×2 (23:55)
[2019-11-22 05:32] LABS: ALBUMIN 3.6 g/dL (3.5-5.0); ALKALINE PHOSPHATASE 72 U/L (38-126); ANION GAP 12 (5-19); ASPARTATE AMINO TRANSFERASE 21 U/L (17-59); BILIRUBIN,DIRECT 0.2 mg/dL (0.0-0.4); BILIRUBIN,TOTAL 1.9 mg/dL (0.2-1.3); BLOOD UREA NITROGEN 23 mg/dL (7-20); CALCIUM 8.4 mg/dL (8.4-10.2); CARBON DIOXIDE 25 mmol/L (22-30); CHLORIDE 99 mmol/L (98-107); GLUCOSE 87 mg/dL (75-110); TOTAL PROTEIN 6.3 g/dL (6.3-8.2)
[2019-11-22 05:40] LABS: POTASSIUM 4.3 mmol/L (3.6-5.0)
[2019-11-22] MEDS: NORMAL SALINE 1000 ML 1,000 ML IV PRN (05:55)
[2019-11-22 08:26] LABS: ABSOLUTE BASOPHILS # (AUTO) 0.1 10^3/uL (0.0-0.2); ABSOLUTE EOSINOPHILS # (AUTO) 0.3 10^3/uL (0.0-0.6); ABSOLUTE LYMPHOCYTES (AUTO) 3.6 10^3/uL (0.5-4.7); ABSOLUTE MONOCYTES (AUTO) 0.9 10^3/uL (0.1-1.4); ABSOLUTE NEUT (AUTO) 6.2 10^3/uL (1.7-8.2); BASOPHILS % (AUTO) 0.8 % (0-2); EOSINOPHILS % (AUTO) 2.5 % (0-6); HEMATOCRIT 31.9 % (37.9-51.0); LYMPHOCYTES % (AUTO) 32.8 % (13-45); MEAN CORPUSCULAR HEMOGLOBIN 31.3 pg (27.0-33.4); MEAN CORPUSCULAR HGB CONC 34.7 g/dL (32.0-36.0); MEAN CORPUSCULAR VOLUME 90 fl (80-97); PLATELET COUNT 264 10^3/uL (150-450); RED BLOOD COUNT 3.54 10^6/uL (4.35-5.55); RED CELL DISTRIBUTION WIDTH 12.7 % (11.5-14.0); SEGMENTED NEUTROPHILS % (AUTO) 55.9 % (42-78); TOTAL CELLS COUNTED % (AUTO) 100 %
[2019-11-22 08:43] LABS: HEMOGLOBIN 11.1 g/dL (13.5-17.0)
--- NOTE | 2019-11-22 10:45 | PDOC PROGRESS REPORT ---
Subjective Progress Note for:: 11/22/19 Subjective:: Patient had a few episodes of bloody stools last night but cleared up after midnight. Denies abdominal pain. Hb trended down to 11.2. He is going for colonoscopy later today. Reason For Visit: GI BLEED Physical Exam Vital Signs: Temp Pulse Resp BP Pulse Ox 98.2 F 70 18 112/67 97 11/22/19 08:21 11/22/19 08:21 11/22/19 08:21 11/22/19 08:21 11/22/19 08:21 Intake & Output 11/21/19 11/22/19 11/23/19 06:59 06:59 06:59 Intake Total 1900 Output Total 4400 Balance -2500 Weight 192 lb 14.472 oz General appearance: PRESENT: no acute distress, well-developed, well-nourished Head exam: PRESENT: atraumatic, normocephalic Eye exam: PRESENT: conjunctiva pink, EOMI, PERRLA. ABSENT: scleral icterus Ear exam: PRESENT: normal external ear exam Mouth exam: PRESENT: moist, tongue midline Neck exam: ABSENT: carotid bruit, JVD, lymphadenopathy, thyromegaly Respiratory exam: PRESENT: clear to auscultation [place]. ABSENT: rales, rhonchi, wheezes Cardiovascular exam: PRESENT: RRR. ABSENT: diastolic murmur, rubs, systolic murmur Pulses: PRESENT: normal dorsalis pedis pul GI/Abdominal exam: PRESENT: normal bowel sounds, soft. ABSENT: distended, guarding, mass, organolmegaly, rebound, tenderness Rectal exam: PRESENT: deferred Extremities exam: PRESENT: full ROM. ABSENT: calf tenderness, clubbing, pedal edema Neurological exam: PRESENT: alert, awake, oriented to person, oriented to place, oriented to time, oriented to situation, CN II-XII grossly intact. ABSENT: motor sensory deficit Results Laboratory Results: 11/22/19 04:34 11/22/19 04:34 11/21/19 11/21/19 11/21/19 11:30 11:30 11:30 WBC 12.3 H RBC 4.42 Hgb 14.0 Hct 40.1 MCV 91 MCH 31.6 MCHC 34.8 RDW 12.6 Plt Count 357 Seg Neutrophils % 65.0 Sodium 142.3 Potassium 5.3 H Chloride 100 Carbon Dioxide 31 H Anion Gap 11 BUN 19 Creatinine 0.65 Est GFR ( Amer) > 60 Glucose 106 Calcium 9.7 Total Bilirubin 1.4 H AST 19 Alkaline Phosphatase 85 Total Protein 7.8 Albumin 4.7 Urine Color YELLOW Urine Appearance SLIGHTLY-CLOUDY Urine pH 5.0 Ur Specific [place] 1.025 Urine Protein NEGATIVE Urine Glucose (UA) NEGATIVE Urine Ketones NEGATIVE Urine Blood NEGATIVE Urine RBC (Auto) 1 11/21/19 11/22/19 11/22/19 18:07 04:34 04:34 WBC 12.0 H 11.0 H RBC 4.28 L 3.54 L Hgb 13.2 L 11.1 L D Hct 38.7 31.9 L MCV 91 90 MCH 30.9 31.3 MCHC 34.1 34.7 RDW 12.4 12.7 Plt Count 354 264 Seg Neutrophils % 55.9 Sodium 136.3 L Potassium 4.3 D Chloride 99 Carbon Dioxide 25 Anion Gap 12 BUN 23 H Creatinine 0.91 Est GFR ( Amer) > 60 Glucose 87 Calcium 8.4 Total Bilirubin 1.9 H AST 21 Alkaline Phosphatase 72 Total Protein 6.3 Albumin 3.6 Urine Color Urine Appearance Urine pH Ur Specific [place] Urine Protein Urine Glucose (UA) Urine Ketones Urine Blood Urine RBC (Auto) Impressions: KUB X-Ray 11/21/19 11:26 IMPRESSION: NO RADIOGRAPHIC EVIDENCE FOR ACUTE ABDOMINAL DISEASE. Assessment and Plan - Diagnosis (1) Lower GI bleed Is this a current diagnosis for this admission?: Yes Plan: Hb trended down to 11.2. He is going for colonoscopy later today. (2) HTN (hypertension) Is this a current diagnosis for this admission?: Yes Plan: Controlled. - Time Time Spent with patient: 25-34 minutes
[2019-11-22] MEDS ORDERED: PROPOFOL INJ 200 MG/20 ML VIAL IV ONE ×2 (12:01→12:34)
[2019-11-22] MEDS ORDERED: LIDOCAINE 2% INJ-PF (20 MG/ML) 10 ML AMPUL ONE (12:19)
--- NOTE | 2019-11-22 12:57 | Operative Report ---
Operative Report DATE OF SURGERY: 11/22/19 Operative Report: The risk, benefits and alternatives of the procedure including the risk of bleeding, perforation requiring surgery have been explained to the patient in detail and informed consent has been obtained. Patient is taken back to the endoscopy suite and placed in a left, lateral decubital position. Timeout was called. Propofol medication is administered. Rectal examination is done which did not reveal any masses tears or fissures. An Olympus videoscope was introduced into the patient's rectum. Scope was then carefully advanced all the way to the cecum. The previous site of previous ablation is noted. There is a clean-based ulcer. The scope was then sequentially pulled back via the various segments of the colon including the ascending colon, hepatic flexure, transverse colon, splenic flexure, descending colon finding to the rectosigmoid portions of the colon. Retroflexion maneuvers performed. 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 POSTOPERATIVE DIAGNOSIS: Clean-based ulcer at the site of previous ablation. Diverticulosis. Internal hemorrhoids. No active bleeding is noted OPERATION: Diagnostic colonoscopy SURGEON: BILLIE KUNZ ANESTHESIA: LMAC TISSUE REMOVED OR ALTERED: As noted COMPLICATIONS: None. ESTIMATED BLOOD LOSS: None. INTRAOPERATIVE FINDINGS: Clean-based ulcer noted at the site of previous ablation there is not actively bleeding. Diverticulosis. Internal hemorrhoids PROCEDURE: Patient tolerated the procedure well. No immediate postprocedure complications are noted. Patient is discharged in good condition Resume regular diet as tolerated Resume previous activity level I spoke to Dr. Hoover we should be able to discharge the gentleman follow-up as outpatient No active bleeding is noted
[2019-11-22 15:19] VITALS: BP 133/85
--- NOTE | 2019-11-22 17:24 | ADVANCED CARE ---
- Diagnosis (1) Lower GI bleed Diagnosis Current: Yes (2) HTN (hypertension) Diagnosis Current: Yes (3) HTN (hypertension) Diagnosis Current: Yes Resuscitation Status: Full Code Discussion: Discussed with patient and he says he is a full code and prefers to receive chest compressions, defibrillation or mechanical ventilation if the need arises. He says that his sisterParis is his surrogate medical decision maker.
--- NOTE | 2019-11-22 18:52 | PDOC DISCHARGE SUMMARY ---
Impression - Admit/DC Date/PCP Admission Date/Primary Care Provider: 11/21/19 14:09 SHREYA RENDON PA-C Discharge Date: 11/22/19 - Discharge Diagnosis (1) Lower GI bleed Is this a current diagnosis for this admission?: Yes (2) HTN (hypertension) Is this a current diagnosis for this admission?: Yes - Additional Information Resuscitation Status: Full Code Discharge Activity: Activity As Tolerated, Balance Activity w/Rest Referrals: SHREYA RENDON PA-C [Primary Care Provider] - 11/30/19 10:30 am BILLIE GOOD MD [ACTIVE STAFF] - 11/28/19 4:15 pm Home Medications: Atorvastatin Calcium [Lipitor 40 mg Tablet] 40 mg PO QAM 11/08/19 Lisinopril [Zestril] 5 mg PO QAM 11/08/19 Acetaminophen [Acetaminophen Extra Strength] 1,000 mg PO Q4HP PRN 11/21/19 Krill/Om-3/Dha/Epa/Phospho/Ast [[place]-3 Krill Oil 300 mg Sfgl] 1 cap PO DAILY 11/21/19 Nicotine Polacrilex [Nicotine Lozenge] 2 mg PO ASDIR PRN 11/21/19 Varenicline Tartrate [Chantix 1 mg Tablet] 1 mg PO BID 11/21/19 History of Present Illiness History of Present Illness: ANAID RENE is a 64 year old male with a past medical history of hypertension and hyperlipidemia who presented with Patient recently had a colonoscopy done on 11/09/[address] 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 He underwent ablation of the AVM. He says he has been apparently fine until early this morning, when he started passing out bright red bloody stools. He says he had a total of 5 episodes of hematochezia. He report mild lower abdominal cramping. Denies nausea vomiting or hematemesis. Upon encounter, blood pressures are running in the 120s over 80s. Heart rate in the 80s to 90s. He denies dizziness, shortness of shortness of breath. Hemoglobin at 14. Discussed with Dr. Good. Patient will be scheduled for a repeat colonoscopy tomorrow. Hospital Course Hospital Course: Patient was admitted for lower GI bleed. He was diagnosed with an AVM and recently underwent ablation of a cecal AVM by Dr Good. Patient was seen by Dr. Good. Repeat colonoscopy was done and it did reveal a new clean-based ulcer which has developed at the site of previously ablated area. Discussed in length with GI. Bleeding has stopped. Patient was cleared for discharge. He will closely follow-up with Dr. Good next week. Physical Exam Vital Signs: Temp Pulse Resp BP Pulse Ox 98.2 F 81 18 133/85 H 97 11/22/19 15:17 11/22/19 15:17 11/22/19 15:17 11/22/19 15:17 11/22/19 15:17 Intake & Output 11/21/19 11/22/19 11/23/19 06:59 06:59 06:59 Intake Total 1900 1250 Output Total 4400 Balance -2500 1250 Weight 192 lb 14.472 oz General appearance: PRESENT: no acute distress, well-developed, well-nourished Head exam: PRESENT: atraumatic, normocephalic Eye exam: PRESENT: conjunctiva pink, EOMI, PERRLA. ABSENT: scleral icterus Ear exam: PRESENT: normal external ear exam Mouth exam: PRESENT: moist, tongue midline Neck exam: ABSENT: carotid bruit, JVD, lymphadenopathy, thyromegaly Respiratory exam: PRESENT: clear to auscultation [place]. ABSENT: rales, rhonchi, wheezes Cardiovascular exam: PRESENT: RRR. ABSENT: diastolic murmur, rubs, systolic murmur Pulses: PRESENT: normal dorsalis pedis pul GI/Abdominal exam: PRESENT: normal bowel sounds, soft. ABSENT: distended, guarding, mass, organolmegaly, rebound, tenderness Rectal exam: PRESENT: deferred Extremities exam: PRESENT: full ROM. ABSENT: calf tenderness, clubbing, pedal edema Neurological exam: PRESENT: alert, awake, oriented to person, oriented to place, oriented to time, oriented to situation, CN II-XII grossly intact. ABSENT: motor sensory deficit Results Laboratory Results: WBC 11.0 10^3/uL (4.0-10.5) H 11/22/19 04:34 RBC 3.54 10^6/uL (4.35-5.55) L 11/22/19 04:34 Hgb 11.1 g/dL (13.5-17.0) L D 11/22/19 04:34 Hct 31.9 % (37.9-51.0) L 11/22/19 04:34 MCV 90 fl (80-97) 11/22/19 04:34 MCH 31.3 pg (27.0-33.4) 11/22/19 04:34 MCHC 34.7 g/dL (32.0-36.0) 11/22/19 04:34 RDW 12.7 % (11.5-14.0) 11/22/19 04:34 Plt Count 264 10^3/uL (150-450) 11/22/19 04:34 Lymph % (Auto) 32.8 % (13-45) 11/22/19 04:34 Divide % (Auto) 8.0 % (3-13) 11/22/19 04:34 Eos % (Auto) 2.5 % (0-6) 11/22/19 04:34 Baso % (Auto) 0.8 % (0-2) 11/22/19 04:34 Absolute Neuts (auto) 6.2 10^3/uL (1.7-8.2) 11/22/19 04:34 Absolute Lymphs (auto) 3.6 10^3/uL (0.5-4.7) 11/22/19 04:34 Absolute Monos (auto) 0.9 10^3/uL (0.1-1.4) 11/22/19 04:34 Absolute Eos (auto) 0.3 10^3/uL (0.0-0.6) 11/22/19 04:34 Absolute Basos (auto) 0.1 10^3/uL (0.0-0.2) 11/22/19 04:34 Seg Neutrophils % 55.9 % (42-78) 11/22/19 04:34 PT 13.5 SEC (11.4-15.4) 11/21/19 11:30 INR 1.03 11/21/19 11:30 APTT 31.9 SEC (23.5-35.8) 11/21/19 11:30 Sodium 136.3 mmol/L (137-145) L 11/22/19 04:34 Potassium 4.3 mmol/L (3.6-5.0) D 11/22/19 04:34 Chloride 99 mmol/L (98-107) 11/22/19 04:34 Carbon Dioxide 25 mmol/L (22-30) 11/22/19 04:34 Anion Gap 12 (5-19) 11/22/19 04:34 BUN 23 mg/dL (7-20) H 11/22/19 04:34 Creatinine 0.91 mg/dL (0.52-1.25) 11/22/19 04:34 Est GFR ( Amer) > 60 (>60) 11/22/19 04:34 Est GFR (MDRD) Non-Af > 60 (>60) 11/22/19 04:34 Glucose 87 mg/dL (75-110) 11/22/19 04:34 Calcium 8.4 mg/dL (8.4-10.2) 11/22/19 04:34 Total Bilirubin 1.9 mg/dL (0.2-1.3) H 11/22/19 04:34 Direct Bilirubin 0.2 mg/dL (0.0-0.4) 11/22/19 04:34 Neonat Total Bilirubin Not Reportable 11/22/19 04:34 Neonat Direct Bilirubin Not Reportable 11/22/19 04:34 Neonat Indirect Bili Not Reportable 11/22/19 04:34 AST 21 U/L (17-59) 11/22/19 04:34 ALT 11 U/L (<50) 11/22/19 04:34 Alkaline Phosphatase 72 U/L (38-126) 11/22/19 04:34 Total Protein 6.3 g/dL (6.3-8.2) 11/22/19 04:34 Albumin 3.6 g/dL (3.5-5.0) 11/22/19 04:34 Urine Color YELLOW 11/21/19 11:30 Urine Appearance SLIGHTLY-CLOUDY 11/21/19 11:30 Urine pH 5.0 (5.0-9.0) 11/21/19 11:30 Ur Specific [place] 1.025 11/21/19 11:30 Urine Protein NEGATIVE mg/dL (NEGATIVE) 11/21/19 11:30 Urine Glucose (UA) NEGATIVE mg/dL (NEGATIVE) 11/21/19 11:30 Urine Ketones NEGATIVE mg/dL (NEGATIVE) 11/21/19 11:30 Urine Blood NEGATIVE (NEGATIVE) 11/21/19 11:30 Urine Nitrite (Reflex) NEGATIVE (NEGATIVE) 11/21/19 11:30 Urine Bilirubin NEGATIVE (NEGATIVE) 11/21/19 11:30 Urine Urobilinogen NEGATIVE mg/dL (<2.0) 11/21/19 11:30 Leukocyte Esterase Rfl NEGATIVE (NEGATIVE) 11/21/19 11:30 Urine RBC (Auto) 1 /HPF 11/21/19 11:30 Urine WBC (Reflex) 4 /HPF 11/21/19 11:30 Squamous Epi Cells Auto 1 /HPF 11/21/19 11:30 Urine Mucus (Auto) MANY /LPF 11/21/19 11:30 Urine Ascorbic Acid 40 (NEGATIVE) H 11/21/19 11:30 POC Stool Occult Blood POSITIVE (NEGATIVE) 11/21/19 12:48 Impressions: KUB X-Ray 11/21/19 11:26 IMPRESSION: NO RADIOGRAPHIC EVIDENCE FOR ACUTE ABDOMINAL DISEASE. Stroke Is this a Stroke Patient?: No Acute Heart Failure - Is this a Heart Failure Patient?: No
== END 2019-11-22 15:38 | disposition home or self-care (01) ==
LOC: ER 10:14 → INTOOBSV 14:09 → EH 14:09 → 3W 16:34
PROVIDERS: ADMIT Internal Medicine; ATTEND Internal Medicine
DX: K91.89 Other postprocedural complications and disorders of digestive system (principal); K63.3 Ulcer of intestine; Y83.8 Other surgical procedures as the cause of abnormal reaction of the patient, or of later complication, without mention of misadventure at the time of the procedure; K57.91 Diverticulosis of intestine, part unspecified, without perforation or abscess with bleeding; K64.8 Other hemorrhoids; I10 Essential (primary) hypertension; E78.5 Hyperlipidemia, unspecified; F17.200 Nicotine dependence, unspecified, uncomplicated; I69.354 Hemiplegia and hemiparesis following cerebral infarction affecting left non-dominant side; I69.398 Other sequelae of cerebral infarction; R20.0 Anesthesia of skin; R55 Syncope and collapse; Z87.19 Personal history of other diseases of the digestive system; Z79.899 Other long term (current) drug therapy
CPT/HCPCS: 99285; 45378; 36415 ×2; 85025 ×2; 85610; 85730; 80053 ×2; 81001; 74018; 00811; G0378 ×3; A9270 ×2; J7030 ×2; J2704; J3490; 811